=== PATIENT | female | born 1970 | race Caucasian/White ===

== ENCOUNTER 2018-12-09 13:07 | Emergency (ER) | payer SELFPAY ==
[~2018-12-09] VITALS: Ht 165.1 cm; Wt 75.7 kg
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
[2018-12-09] MEDS ORDERED: ACHD5005 PO (13:14)
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
--- NOTE | 2018-12-09 13:25 | NUR ---
minor swelling noted right foot mostly lateral side dorsal foot.
--- NOTE | 2018-12-09 13:25 | NUR ---
pain rating 8.
--- NOTE | 2018-12-09 13:25 | NUR ---
pt has healing scab to posterior right ankle w/o sighns of infection.
--- NOTE | 2018-12-09 13:33 | Diagnostic Imaging Report ---
INDICATION: Right ankle pain post injury. TECHNIQUE: AP, oblique, and lateral views of the right ankle are obtained. FINDINGS: No fracture or acute bony abnormality is seen. IMPRESSION: Negative right ankle. Dictated by: Dictated on workstation # [id number]
--- NOTE | 2018-12-09 13:34 | Diagnostic Imaging Report ---
INDICATION: Injury to right foot. AP, oblique, and lateral views of the right foot are obtained. FINDINGS: No fracture or acute bony abnormality is seen. IMPRESSION: Negative right foot. Dictated by: Dictated on workstation # [id number]
[2018-12-09 13:48] VITALS: BP 157/113
--- NOTE | 2018-12-09 13:48 | NUR ---
d/c instructions to pt. told to read all papers. script paper only. pt left ambulatory by self. pt knows f/u. i went over the handtyped by information on the chart. pt had no iv. work release given. v/o genaro bandage. i applied genaro wrap to right foot/ ankle prior to d/c. dr manzo with d/c bp machine is 157/113 ausc hr 104 reg ausc resp 12 normal recheck temp is 97.3 p ox r/a is 99.
== END 2018-12-09 13:48 | disposition home or self-care (01) ==
LOC: EDUNIT# 13:07 → ER 13:08
DX: S90.31XA Contusion of right foot, initial encounter (principal); S90.511A Abrasion, right ankle, initial encounter; X58.XXXA Exposure to other specified factors, initial encounter
CPT/HCPCS: 73610; 73630